=== PATIENT | female | born 1940 | race American Indian/Alaskan Native ===

== ENCOUNTER 2017-04-21 11:44 | Outpatient (CLI) | payer MEDICARE ==
--- NOTE | 2017-04-21 13:06 | XRay Report ---
Bilateral hips: History: Hip pain. Findings: Mild changes right and left hip joint. Calcification adjacent to the greater trochanter right and left femur. No fracture or dislocation. Impression: Mild arthritic changes. Calcification along the greater tuberosity may be related to bursitis or calcific tendinitis or old injury.
== END 2017-04-21 11:45 | disposition home or self-care (01) ==
LOC: XRAY 11:44
PROVIDERS: ATTEND Family Medicine
DX: M16.0 Bilateral primary osteoarthritis of hip (principal)
CPT/HCPCS: 73521

== ENCOUNTER 2017-07-14 11:18 | Outpatient (CLI) | payer MEDICARE ==
--- NOTE | 2017-07-14 16:29 | Mammography Report ---
BILATERAL DIGITAL SCREENING MAMMOGRAM with CAD: 07/14/17 CLINICAL: Routine screening. COMPARISON:None available. However, a prior mammogram was apparently done at [facility]. FINDINGS: The breasts are heterogeneously dense, which may obscure small masses. Left asymmetries and architectural distortion on the CC view require comparison with a prior mammogram or additional imaging of the left breast.No suspicious calcifications.The right breast is negative. IMPRESSION: Left asymmetries and architectural distortion requiring further evaluation. BI-RADS CATEGORY: 0 -- Additional Evaluation Required RECOMMENDATION: Comparison with a previous mammogram. We will attempt to obtain a prior mammogram from [facility]. If we do not obtain a prior mammogram for comparison within 30 days, a revised report will be issued recommending a recall for additional imaging. Please be advised that the patient should not schedule an appointment for return until adequate time (at least 2 weeks) has passed for us to obtain the prior mammogram. ACR BI-RADS MAMMOGRAPHIC CODES: 0 = Needs additional imaging evaluation; 1 = Negative; 2 = Benign; 3 = Probably benign; 4 = Suspicious; 5 = Malignant; 6 = Known biopsy-proven malignancy COMMENT: 1. Dense breast tissue, i.e., adenosis, fibrocystic changes, etc., may obscure an underlying neoplasm. 2. Approximately 10% of cancers are not detected with mammography. 3. A negative mammography report should not delay biopsy if a clinically suspicious mass is present. COMMENT: Patient follow-up letters are generated via our [employer] application.
== END 2017-07-14 11:19 | disposition home or self-care (01) ==
LOC: MAMMO 11:18
DX: Z12.31 Encounter for screening mammogram for malignant neoplasm of breast (principal)
CPT/HCPCS: 77067; G0202